=== PATIENT | male | born 1945 | race Caucasian/White ===

== ENCOUNTER 2018-02-01 13:44 | Inpatient (IN) | payer MEDICARE, OTHER ==
[~2018-02-01] VITALS: Ht 175.3 cm; Wt 70.4 kg
[2018-02-01] MEDS ORDERED: SODIUM CHLORIDE 0.9% 1,000 ML IV ONE ×2 (13:57→16:04)
[2018-02-01] MEDS ORDERED: SODIUM CHLORIDE FLUSH 10ML SYR IVF ONE (14:00)
[2018-02-01] MEDS ORDERED: SODIUM CHLORIDE 0.9% 1,000ML IVBOLUS ONE ×2 (14:00→15:00)
[2018-02-01 14:29] LABS: MEAN CORPUSCULAR HEMOGLOBIN 29.2 pg (27.5-34.5); MEAN CORPUSCULAR HGB CONC 32.5 g/dL (33.2-36.2); MEAN CORPUSCULAR VOLUME 89.7 fL (81-97); MEAN PLATELET VOLUME 8.1 fL (7.4-10.4); PLATELET COUNT 270 x10^3/uL (130-400); RED BLOOD COUNT 5.94 x10^6/uL (4.38-5.82); RED CELL DISTRIBUTION WIDTH 14.7 % (9.4-14.8)
[2018-02-01] MEDS ORDERED: PLEASE ENTER HEIGHT AND WEIGHT MC SCH (14:30)
[2018-02-01] MEDS ORDERED: PLEASE ENTER ALLERGIES MC SCH (14:30)
[2018-02-01 14:41] LABS: ALANINE AMINOTRANSFERASE 61 U/L (12-78); ALBUMIN 2.7 g/dL (3.4-5.0); ANION GAP 18 mmol/L (5-15); CALCIUM 8.7 mg/dL (8.5-10.1); CHLORIDE 109 mmol/L (98-107); CREATININE 1.55 mg/dL (0.7-1.3)
[2018-02-01 14:44] LABS: ALKALINE PHOSPHATASE 127 U/L (45-117); BILIRUBIN,TOTAL 0.6 mg/dL (0.2-1.0); CREATINE KINASE, TOTAL 272 U/L (39-308); TOTAL PROTEIN 8.1 g/dL (6.4-8.2)
[2018-02-01] MEDS ORDERED: PHARMACOKINETIC CONSULTATION MC ONE (15:00)
[2018-02-01] MEDS ORDERED: VANCOMYCIN PER PHARMACY MC ONE (15:00)
[2018-02-01] MEDS ORDERED: PIPERACILLIN/TAZO/PMX 4.5GM 100 ML IVPB ONE (15:00)
[2018-02-01] MEDS ORDERED: VANCOMYCIN 1,400 MG in SODIUM CHLORIDE 0.9% 250 ML IV ONE (15:30)
[2018-02-01 15:34] LABS: MD YES
[2018-02-01 15:55] LABS: <RBC MORPHOLOGY> NORMAL; BAND#(MANUAL) 0.51 x10^3/uL; BANDS%(MANUAL) 2 % (0-7); MONOS#(MANUAL) 2.03 x10^3/uL (0.3-2.7); MONOS% (MANUAL) 8 % (2-9); SEG#(MANUAL) 22.86 x10^3/uL (1.8-6.8); SEGS% (MANUAL) 90 % (42-75)
[2018-02-01 15:56] LABS: <PLATELET ESTIMATE> ADEQUATE; <PLT MORPHOLOGY> NORMAL PLT MORPH
[2018-02-01] MEDS ORDERED: SODIUM CHLORIDE FLUSH 10ML SYR IVF PRN (16:30)
[2018-02-01 16:36] LABS: MICROSCOPIC INDICATED
[2018-02-01] MEDS ORDERED: NS + 20MEQ KCL 1,000 ML IV SCH (16:46)
[2018-02-01 16:49] LABS: CULTURE INDICATED? YES
[2018-02-01] MEDS ORDERED: ONDANSETRON 2MG/ML, 2ML IVPush PRN (17:00)
[2018-02-01] MEDS ORDERED: SODIUM BICARBONATE 8.4% 100 MEQ in DEXTROSE 5% 1,000 ML IV SCH (17:00)
[2018-02-01] MEDS ORDERED: PROMETHAZINE 25 MG/ML, 1ML IM PRN (17:00)
[2018-02-01] MEDS ORDERED: ONDANSETRON ODT 4 MG PO PRN (17:00)
[2018-02-01 17:08] LABS: HCT (SEDRATE) 53.1 % (39.2-51.8)
[2018-02-01] MEDS ORDERED: VANCOMYCIN PER PHARMACY MC PRN (17:30)
[2018-02-01] MEDS ORDERED: TAMS0.4C2 PO (17:35)
[2018-02-01] MEDS ORDERED: SERT25TA PO (17:35)
[2018-02-01] MEDS ORDERED: CYAN100014 PO (17:35)
[2018-02-01] MEDS ORDERED: ASPI-515 PO (17:35)
[2018-02-01] MEDS ORDERED: SERT50TA5 PO (17:35)
[2018-02-01] MEDS ORDERED: FINA5TAB4 PO (17:35)
[2018-02-01] MEDS ORDERED: METF500T17 PO (17:35)
[2018-02-01] MEDS ORDERED: LATA2.5D3 EACHEYE (17:35)
[2018-02-01] MEDS ORDERED: ATOR20TA9 PO (17:35)
[2018-02-01] MEDS ORDERED: GABA300C10 PO (17:35)
[2018-02-01] MEDS ORDERED: TRAZ-137 PO (17:35)
[2018-02-01] MEDS ORDERED: PHARMACOKINETIC MONITORING MC PRN (18:00)
[2018-02-01] MEDS: PIPERACILLIN/TAZO/PMX 3.375GM 50 ML IV SCH (18:21)
[2018-02-01] MEDS: HEPARIN 5,000 UNITS/ML, 1ML SQ SCH (18:26)
[2018-02-01 19:51] VITALS: BP 129/80
[2018-02-01] MEDS: SODIUM BICARBONATE 8.4% 100 MEQ in DEXTROSE 5% 1,000 ML IV SCH (21:24)
[2018-02-01] MEDS: INSULIN LISPRO 100 UNITS/ML, PEN SQ-INSULIN SCH (22:07)
[2018-02-01] MEDS: IBUPROFEN 600 MG TABLET PO PRN (22:30)
[2018-02-01 23:43] LABS: MEAN CORPUSCULAR HEMOGLOBIN 29.9 pg (27.5-34.5); MEAN CORPUSCULAR HGB CONC 33.5 g/dL (33.2-36.2); MEAN CORPUSCULAR VOLUME 89.2 fL (81-97); MEAN PLATELET VOLUME 7.9 fL (7.4-10.4); PLATELET COUNT 243 x10^3/uL (130-400); RED BLOOD COUNT 5.13 x10^6/uL (4.38-5.82); RED CELL DISTRIBUTION WIDTH 14.7 % (9.4-14.8)
[2018-02-01 23:45] VITALS: BP 135/84
[2018-02-01 23:45] LABS: ANION GAP 14 mmol/L (5-15); CALCIUM 7.9 mg/dL (8.5-10.1); CHLORIDE 112 mmol/L (98-107); CREATININE 1.26 mg/dL (0.7-1.3); MD YES
[2018-02-02 00:30] LABS: <PLATELET ESTIMATE> ADEQUATE; <PLT MORPHOLOGY> NORMAL PLT MORPH; <RBC MORPHOLOGY> NORMAL; BAND#(MANUAL) 0.93 x10^3/uL; BANDS%(MANUAL) 5 % (0-7); LYMPH#(MANUAL) 0.37 x10^3/uL (1-3.4); LYMPHS% (MANUAL) 2 % (22-44); MONOS#(MANUAL) 0.56 x10^3/uL (0.3-2.7); MONOS% (MANUAL) 3 % (2-9); SEG#(MANUAL) 16.74 x10^3/uL (1.8-6.8); SEGS% (MANUAL) 90 % (42-75)
[2018-02-02] MEDS: PIPERACILLIN/TAZO/PMX 3.375GM 50 ML IV SCH ×3 (01:37→16:38)
[2018-02-02] MEDS: HEPARIN 5,000 UNITS/ML, 1ML SQ SCH ×3 (01:38→16:38)
[2018-02-02 02:22] VITALS: BP 111/68
[2018-02-02 05:35] LABS: MEAN CORPUSCULAR HEMOGLOBIN 29.8 pg (27.5-34.5); MEAN CORPUSCULAR HGB CONC 33.1 g/dL (33.2-36.2); MEAN CORPUSCULAR VOLUME 89.9 fL (81-97); MEAN PLATELET VOLUME 8.1 fL (7.4-10.4); PLATELET COUNT 221 x10^3/uL (130-400); RED BLOOD COUNT 4.74 x10^6/uL (4.38-5.82); RED CELL DISTRIBUTION WIDTH 14.7 % (9.4-14.8)
[2018-02-02 05:43] LABS: ANION GAP 15 mmol/L (5-15); CALCIUM 7.6 mg/dL (8.5-10.1); CHLORIDE 107 mmol/L (98-107); CREATININE 1.21 mg/dL (0.7-1.3)
[2018-02-02 05:46] LABS: CREATINE KINASE, TOTAL 148 U/L (39-308)
[2018-02-02 06:07] LABS: BASOPHILS % (AUTO) 0 % (0-1); EOSINOPHILS % (AUTO) 0 % (1-7); LYMPHOCYTES # (AUTO) 0.32 x10^3/uL (1-3.4); LYMPHOCYTES % (AUTO) 2 % (22-44); MD SCAN; MONOCYTES % (AUTO) 6 % (2-9); NEUTROPHILS # (AUTO) 16.24 x10^3/uL (1.8-6.8); NEUTROPHILS % (AUTO) 93 % (42-75)
[2018-02-02 07:05] VITALS: BP 122/69
[2018-02-02] MEDS: INSULIN LISPRO 100 UNITS/ML, PEN SQ-INSULIN SCH ×4 (08:30→22:03)
[2018-02-02] MEDS: SODIUM BICARBONATE 8.4% 100 MEQ in DEXTROSE 5% 1,000 ML IV SCH (08:30)
[2018-02-02] MEDS ORDERED: GADOBUTROL 7.5 MMOL/7.5 ML PFS ONE (10:36)
[2018-02-02] MEDS: IBUPROFEN 600 MG TABLET PO PRN (11:41)
[2018-02-02 14:30] LABS: CLOSTRIDIUM DIFFICILE TOXIN NEGATIVE (Negative)
[2018-02-02 14:31] LABS: CLOSTRIDIUM DIFFICILE ANTIGEN POSITIVE
[2018-02-02 15:19] VITALS: BP 158/85
[2018-02-02] MEDS: VANCOMYCIN 1,400 MG in SODIUM CHLORIDE 0.9% 250 ML IV SCH (17:47)
[2018-02-02] MEDS ORDERED: POTASSIUM CHLORIDE 40 MEQ in SODIUM CHLORIDE 0.9% 500 ML IV ONE ×2 (19:30→23:30)
[2018-02-02 20:51] LABS: ANION GAP 11 mmol/L (5-15); CALCIUM 7.7 mg/dL (8.5-10.1); CHLORIDE 105 mmol/L (98-107); CREATININE 1.02 mg/dL (0.7-1.3)
[2018-02-02 21:17] VITALS: BP 131/77
[2018-02-02] MEDS ORDERED: POTASSIUM PHOSPHATE 22 MEQ in SODIUM CHLORIDE 0.9% 500 ML IV ONE (23:30)
[2018-02-03] MEDS: HEPARIN 5,000 UNITS/ML, 1ML SQ SCH ×3 (01:29→16:52)
[2018-02-03] MEDS: PIPERACILLIN/TAZO/PMX 3.375GM 50 ML IV SCH ×3 (01:29→18:19)
[2018-02-03 01:46] VITALS: BP 100/65
[2018-02-03] MEDS: SODIUM BICARBONATE 8.4% 100 MEQ in DEXTROSE 5% 1,000 ML IV SCH (02:24)
[2018-02-03 05:29] LABS: CHLORIDE 104 mmol/L (98-107)
[2018-02-03 05:31] LABS: MEAN CORPUSCULAR HEMOGLOBIN 29.9 pg (27.5-34.5); MEAN CORPUSCULAR VOLUME 87.9 fL (81-97); MEAN PLATELET VOLUME 7.9 fL (7.4-10.4); PLATELET COUNT 180 x10^3/uL (130-400); RED CELL DISTRIBUTION WIDTH 14.6 % (9.4-14.8)
[2018-02-03 05:36] LABS: ANION GAP 9 mmol/L (5-15); CALCIUM 7.3 mg/dL (8.5-10.1); CREATININE 0.85 mg/dL (0.7-1.3)
[2018-02-03 06:00] LABS: BASOPHILS # (AUTO) 0.01 x10^3/uL (0-0.1); BASOPHILS % (AUTO) 0 % (0-1); EOSINOPHILS # (AUTO) 0.01 x10^3/uL (0-0.4); EOSINOPHILS % (AUTO) 0 % (1-7); LYMPHOCYTES # (AUTO) 0.37 x10^3/uL (1-3.4); LYMPHOCYTES % (AUTO) 3 % (22-44); MD SCAN; MONOCYTES # (AUTO) 0.17 x10^3/uL (0.2-0.8); MONOCYTES % (AUTO) 1 % (2-9); NEUTROPHILS % (AUTO) 96 % (42-75)
[2018-02-03] MEDS: IBUPROFEN 600 MG TABLET PO PRN ×2 (06:24→19:55)
[2018-02-03 07:25] VITALS: BP 98/63
[2018-02-03] MEDS ORDERED: POTASSIUM CHLORIDE 40 MEQ in SODIUM CHLORIDE 0.9% 500 ML IV ONE (07:30)
[2018-02-03] MEDS: INSULIN LISPRO 100 UNITS/ML, PEN SQ-INSULIN SCH ×4 (09:06→21:00)
[2018-02-03 15:20] VITALS: BP 108/64
[2018-02-03] MEDS: VANCOMYCIN 1,400 MG in SODIUM CHLORIDE 0.9% 250 ML IV SCH (16:51)
[2018-02-03 20:51] VITALS: BP 105/69
[2018-02-04] MEDS: PIPERACILLIN/TAZO/PMX 3.375GM 50 ML IV SCH ×3 (01:15→17:08)
[2018-02-04] MEDS: HEPARIN 5,000 UNITS/ML, 1ML SQ SCH ×3 (01:16→16:41)
[2018-02-04 01:35] VITALS: BP 103/68
[2018-02-04 06:33] LABS: MEAN CORPUSCULAR HEMOGLOBIN 29.2 pg (27.5-34.5); MEAN CORPUSCULAR HGB CONC 33.5 g/dL (33.2-36.2); MEAN CORPUSCULAR VOLUME 87.2 fL (81-97); MEAN PLATELET VOLUME 7.4 fL (7.4-10.4); PLATELET COUNT 186 x10^3/uL (130-400); RED BLOOD COUNT 4.12 x10^6/uL (4.38-5.82); RED CELL DISTRIBUTION WIDTH 14.4 % (9.4-14.8)
[2018-02-04 06:42] LABS: ANION GAP 9 mmol/L (5-15); CALCIUM 7.1 mg/dL (8.5-10.1); CHLORIDE 106 mmol/L (98-107)
[2018-02-04 07:07] LABS: BASOPHILS # (AUTO) 0.02 x10^3/uL (0-0.1); BASOPHILS % (AUTO) 0 % (0-1); EOSINOPHILS # (AUTO) 0.12 x10^3/uL (0-0.4); EOSINOPHILS % (AUTO) 1 % (1-7); LYMPHOCYTES % (AUTO) 5 % (22-44); MD SCAN; MONOCYTES # (AUTO) 0.15 x10^3/uL (0.2-0.8); MONOCYTES % (AUTO) 1 % (2-9); NEUTROPHILS # (AUTO) 12.35 x10^3/uL (1.8-6.8); NEUTROPHILS % (AUTO) 93 % (42-75)
[2018-02-04 08:19] VITALS: BP 127/71
[2018-02-04] MEDS: INSULIN LISPRO 100 UNITS/ML, PEN SQ-INSULIN SCH ×4 (08:20→20:09)
[2018-02-04] MEDS ORDERED: POTASSIUM CHLORIDE 40 MEQ in SODIUM CHLORIDE 0.9% 500 ML IV ONE (10:00)
[2018-02-04] MEDS ORDERED: MAGNESIUM SULFATE PMX 2GM/50ML 50 ML IV ONE (10:00)
[2018-02-04 12:14] VITALS: BP 119/74
[2018-02-04] MEDS ORDERED: SITA25TA PO (12:19)
[2018-02-04] MEDS: VANCOMYCIN 1,400 MG in SODIUM CHLORIDE 0.9% 250 ML IV SCH (16:41)
[2018-02-04] MEDS: LACTOBACILLUS 1GM/ PACKET PO SCH (20:09)
[2018-02-04] MEDS: MAGNESIUM CHLORIDE 64 MG TABLET.DR PO SCH (20:09)
[2018-02-04] MEDS: VANCOMYCIN 50 MG/ML ORAL SUSP PO SCH (20:09)
[2018-02-04 20:22] VITALS: BP 143/87
[2018-02-04] MEDS ORDERED: SODIUM CHLORIDE 0.9%, 500ML IVBOLUS ONE (23:30)
[2018-02-05] MEDS: HEPARIN 5,000 UNITS/ML, 1ML SQ SCH ×3 (00:46→18:19)
[2018-02-05 01:23] VITALS: BP 121/73
[2018-02-05] MEDS: VANCOMYCIN 50 MG/ML ORAL SUSP PO SCH ×4 (04:58→21:16)
[2018-02-05 05:49] LABS: ANION GAP 10 mmol/L (5-15); CALCIUM 7.9 mg/dL (8.5-10.1); CHLORIDE 103 mmol/L (98-107); CREATININE 0.76 mg/dL (0.7-1.3)
[2018-02-05 06:33] LABS: MEAN CORPUSCULAR HEMOGLOBIN 29.6 pg (27.5-34.5); MEAN CORPUSCULAR HGB CONC 34.1 g/dL (33.2-36.2); MEAN PLATELET VOLUME 7.8 fL (7.4-10.4); PLATELET COUNT 223 x10^3/uL (130-400); RED BLOOD COUNT 4.35 x10^6/uL (4.38-5.82); RED CELL DISTRIBUTION WIDTH 14.1 % (9.4-14.8)
[2018-02-05 06:52] LABS: BASOPHILS # (AUTO) 0.01 x10^3/uL (0-0.1); BASOPHILS % (AUTO) 0 % (0-1); EOSINOPHILS % (AUTO) 1 % (1-7); LYMPHOCYTES # (AUTO) 0.83 x10^3/uL (1-3.4); LYMPHOCYTES % (AUTO) 5 % (22-44); MD SCAN; MONOCYTES % (AUTO) 3 % (2-9); NEUTROPHILS # (AUTO) 15.83 x10^3/uL (1.8-6.8); NEUTROPHILS % (AUTO) 91 % (42-75)
[2018-02-05 07:17] VITALS: BP 132/78
[2018-02-05] MEDS: MAGNESIUM CHLORIDE 64 MG TABLET.DR PO SCH ×2 (07:52→21:15)
[2018-02-05] MEDS: LACTOBACILLUS 1GM/ PACKET PO SCH ×3 (07:52→21:15)
[2018-02-05] MEDS: INSULIN LISPRO 100 UNITS/ML, PEN SQ-INSULIN SCH ×4 (07:53→21:17)
[2018-02-05] MEDS ORDERED: POTASSIUM CHLORIDE 40 MEQ in SODIUM CHLORIDE 0.9% 500 ML IV ONE (09:30)
[2018-02-05] MEDS ORDERED: MAGNESIUM SULFATE PMX 2GM/50ML 50 ML IV ONE (10:00)
[2018-02-05] MEDS ORDERED: POTASSIUM PHOSPHATE 44 MEQ in SODIUM CHLORIDE 0.9% 500 ML IV ONE (10:00)
[2018-02-05] MEDS: ASPIRIN 81 MG TABLET EC PO SCH (10:26)
[2018-02-05] MEDS: FINASTERIDE 5 MG TABLET PO SCH (10:26)
[2018-02-05] MEDS: GABAPENTIN 400 MG CAPSULE PO SCH ×2 (10:26→21:16)
[2018-02-05] MEDS: CYANOCOBALAMIN 1,000 MCG TABLET PO SCH (10:27)
[2018-02-05] MEDS: TAMSULOSIN 0.4 MG CAP.ER.24H PO SCH (10:44)
[2018-02-05] MEDS: SERTRALINE 50MG TABLET PO SCH (10:44)
[2018-02-05] MEDS: IBUPROFEN 600 MG TABLET PO PRN (13:23)
[2018-02-05 15:00] VITALS: BP 120/73
[2018-02-05] MEDS: VANCOMYCIN 1,400 MG in SODIUM CHLORIDE 0.9% 250 ML IV SCH (18:17)
[2018-02-05 20:18] VITALS: BP 122/75
[2018-02-05] MEDS: ATORVASTATIN 20 MG TABLET PO SCH (21:15)
[2018-02-05] MEDS: TRAZODONE 50MG TABLET PO SCH (21:15)
[2018-02-05] MEDS: INSULIN GLARGINE 100 UNITS/ML, PEN SQ-INSULIN SCH (21:16)
[2018-02-05] MEDS: LATANOPROST OPHTH 0.005%, 2.5ML EACHEYE SCH (21:21)
[2018-02-06 01:43] VITALS: BP 123/73
[2018-02-06] MEDS: HEPARIN 5,000 UNITS/ML, 1ML SQ SCH ×3 (01:59→16:27)
[2018-02-06] MEDS: VANCOMYCIN 50 MG/ML ORAL SUSP PO SCH ×4 (05:49→21:14)
[2018-02-06] MEDS: INSULIN LISPRO 100 UNITS/ML, PEN SQ-INSULIN SCH ×4 (07:00→21:16)
[2018-02-06 07:23] VITALS: BP 126/78
[2018-02-06] MEDS: LACTOBACILLUS 1GM/ PACKET PO SCH ×3 (09:00→21:14)
[2018-02-06] MEDS: GABAPENTIN 400 MG CAPSULE PO SCH ×2 (09:08→21:14)
[2018-02-06] MEDS: SERTRALINE 50MG TABLET PO SCH (09:08)
[2018-02-06] MEDS: MAGNESIUM CHLORIDE 64 MG TABLET.DR PO SCH ×2 (09:08→21:14)
[2018-02-06] MEDS: CYANOCOBALAMIN 1,000 MCG TABLET PO SCH (09:08)
[2018-02-06] MEDS: TAMSULOSIN 0.4 MG CAP.ER.24H PO SCH (09:08)
[2018-02-06] MEDS: FINASTERIDE 5 MG TABLET PO SCH (09:08)
[2018-02-06] MEDS: ASPIRIN 81 MG TABLET EC PO SCH (09:08)
[2018-02-06 14:01] VITALS: BP 122/74
[2018-02-06] MEDS: VANCOMYCIN 1,400 MG in SODIUM CHLORIDE 0.9% 250 ML IV SCH (17:34)
[2018-02-06 18:55] VITALS: BP 104/68
[2018-02-06] MEDS: IBUPROFEN 600 MG TABLET PO PRN (21:14)
[2018-02-06] MEDS: TRAZODONE 50MG TABLET PO SCH (21:14)
[2018-02-06] MEDS: ATORVASTATIN 20 MG TABLET PO SCH (21:14)
[2018-02-06] MEDS: LATANOPROST OPHTH 0.005%, 2.5ML EACHEYE SCH (21:15)
[2018-02-06] MEDS: INSULIN GLARGINE 100 UNITS/ML, PEN SQ-INSULIN SCH (21:17)
[2018-02-07] MEDS: HEPARIN 5,000 UNITS/ML, 1ML SQ SCH ×3 (01:27→16:46)
[2018-02-07] MEDS: ACETAMINOPHEN 325 MG TABLET PO PRN ×2 (02:00→15:38)
[2018-02-07 03:00] VITALS: BP 110/72
[2018-02-07] MEDS: VANCOMYCIN 50 MG/ML ORAL SUSP PO SCH ×4 (05:35→22:17)
[2018-02-07] MEDS: TAMSULOSIN 0.4 MG CAP.ER.24H PO SCH (08:50)
[2018-02-07] MEDS: FINASTERIDE 5 MG TABLET PO SCH (08:50)
[2018-02-07] MEDS: MAGNESIUM CHLORIDE 64 MG TABLET.DR PO SCH ×2 (08:50→22:08)
[2018-02-07] MEDS: GABAPENTIN 400 MG CAPSULE PO SCH ×2 (08:50→22:08)
[2018-02-07] MEDS: SERTRALINE 50MG TABLET PO SCH (08:50)
[2018-02-07] MEDS: LACTOBACILLUS 1GM/ PACKET PO SCH ×3 (08:51→22:09)
[2018-02-07] MEDS: ASPIRIN 81 MG TABLET EC PO SCH (08:51)
[2018-02-07] MEDS: INSULIN LISPRO 100 UNITS/ML, PEN SQ-INSULIN SCH ×4 (08:51→21:00)
[2018-02-07] MEDS: CYANOCOBALAMIN 1,000 MCG TABLET PO SCH (08:51)
[2018-02-07] MEDS: IBUPROFEN 600 MG TABLET PO PRN (09:56)
[2018-02-07] MEDS: VANCOMYCIN 1,400 MG in SODIUM CHLORIDE 0.9% 250 ML IV SCH (17:29)
[2018-02-07 20:36] VITALS: BP 107/57
[2018-02-07] MEDS: INSULIN GLARGINE 100 UNITS/ML, PEN SQ-INSULIN SCH (22:08)
[2018-02-07] MEDS: ATORVASTATIN 20 MG TABLET PO SCH (22:08)
[2018-02-07] MEDS: LATANOPROST OPHTH 0.005%, 2.5ML EACHEYE SCH (22:09)
[2018-02-07] MEDS: TRAZODONE 50MG TABLET PO SCH (22:09)
[2018-02-08] MEDS: HEPARIN 5,000 UNITS/ML, 1ML SQ SCH ×4 (01:00→16:37)
[2018-02-08] MEDS: VANCOMYCIN 50 MG/ML ORAL SUSP PO SCH ×4 (06:00→20:34)
[2018-02-08] MEDS: INSULIN LISPRO 100 UNITS/ML, PEN SQ-INSULIN SCH ×4 (07:00→20:34)
[2018-02-08 08:04] VITALS: BP 111/72
[2018-02-08] MEDS: ASPIRIN 81 MG TABLET EC PO SCH (08:38)
[2018-02-08] MEDS: TAMSULOSIN 0.4 MG CAP.ER.24H PO SCH (08:38)
[2018-02-08] MEDS: GABAPENTIN 400 MG CAPSULE PO SCH ×2 (08:38→20:34)
[2018-02-08] MEDS: LACTOBACILLUS 1GM/ PACKET PO SCH ×3 (08:38→20:35)
[2018-02-08] MEDS: FINASTERIDE 5 MG TABLET PO SCH (08:39)
[2018-02-08] MEDS: CYANOCOBALAMIN 1,000 MCG TABLET PO SCH (08:39)
[2018-02-08] MEDS: MAGNESIUM CHLORIDE 64 MG TABLET.DR PO SCH ×2 (08:39→20:34)
[2018-02-08] MEDS: SERTRALINE 50MG TABLET PO SCH (08:39)
[2018-02-08] MEDS ORDERED: LIDOCAINE/PF 1%, 30ML ONE (09:52)
[2018-02-08] MEDS ORDERED: BUPIVACAINE/PF 0.5% ONE (09:52)
[2018-02-08 12:01] VITALS: BP 117/71
[2018-02-08] MEDS: SODIUM CHLORIDE 0.9% 1,000 ML IV SCH (16:33)
[2018-02-08] MEDS: VANCOMYCIN 1,500 MG in SODIUM CHLORIDE 0.9% 250 ML IV SCH (18:33)
[2018-02-08 18:51] VITALS: BP 115/75
[2018-02-08] MEDS: LATANOPROST OPHTH 0.005%, 2.5ML EACHEYE SCH (20:34)
[2018-02-08] MEDS: TRAZODONE 50MG TABLET PO SCH (20:34)
[2018-02-08] MEDS: ATORVASTATIN 20 MG TABLET PO SCH (20:34)
[2018-02-08] MEDS: INSULIN GLARGINE 100 UNITS/ML, PEN SQ-INSULIN SCH (20:35)
[2018-02-09 01:05] VITALS: BP 131/77
[2018-02-09] MEDS: HEPARIN 5,000 UNITS/ML, 1ML SQ SCH ×3 (01:45→17:00)
[2018-02-09] MEDS: SODIUM CHLORIDE 0.9% 1,000 ML IV SCH ×3 (01:45→22:01)
[2018-02-09] MEDS: VANCOMYCIN 50 MG/ML ORAL SUSP PO SCH ×4 (05:23→21:11)
[2018-02-09] MEDS: INSULIN LISPRO 100 UNITS/ML, PEN SQ-INSULIN SCH ×4 (08:10→22:02)
[2018-02-09] MEDS: CYANOCOBALAMIN 1,000 MCG TABLET PO SCH (09:34)
[2018-02-09] MEDS: GABAPENTIN 400 MG CAPSULE PO SCH ×2 (09:34→21:11)
[2018-02-09] MEDS: FINASTERIDE 5 MG TABLET PO SCH (09:34)
[2018-02-09] MEDS: TAMSULOSIN 0.4 MG CAP.ER.24H PO SCH (09:35)
[2018-02-09] MEDS: ASPIRIN 81 MG TABLET EC PO SCH (09:35)
[2018-02-09] MEDS: SERTRALINE 50MG TABLET PO SCH (09:35)
[2018-02-09] MEDS: MAGNESIUM CHLORIDE 64 MG TABLET.DR PO SCH ×2 (09:35→21:10)
[2018-02-09] MEDS: LACTOBACILLUS 1GM/ PACKET PO SCH ×3 (09:35→21:10)
[2018-02-09 09:59] VITALS: BP 105/65
[2018-02-09 15:59] VITALS: BP 121/79
[2018-02-09 20:59] VITALS: BP 104/71
[2018-02-09] MEDS: TRAZODONE 50MG TABLET PO SCH (21:11)
[2018-02-09] MEDS: LATANOPROST OPHTH 0.005%, 2.5ML EACHEYE SCH (21:11)
[2018-02-09] MEDS: ATORVASTATIN 20 MG TABLET PO SCH (21:11)
[2018-02-09] MEDS: INSULIN GLARGINE 100 UNITS/ML, PEN SQ-INSULIN SCH (22:03)
[2018-02-10] MEDS: HEPARIN 5,000 UNITS/ML, 1ML SQ SCH ×3 (01:28→16:37)
[2018-02-10 01:53] VITALS: BP 110/68
[2018-02-10 05:37] LABS: BASOPHILS % (AUTO) 0 % (0-1); EOSINOPHILS # (AUTO) 0.15 x10^3/uL (0-0.4); EOSINOPHILS % (AUTO) 1 % (1-7); LYMPHOCYTES # (AUTO) 1.12 x10^3/uL (1-3.4); LYMPHOCYTES % (AUTO) 9 % (22-44); MD NO; MEAN CORPUSCULAR HEMOGLOBIN 29.5 pg (27.5-34.5); MEAN CORPUSCULAR HGB CONC 33.5 g/dL (33.2-36.2); MEAN CORPUSCULAR VOLUME 88.2 fL (81-97); MEAN PLATELET VOLUME 7.6 fL (7.4-10.4); MONOCYTES # (AUTO) 0.81 x10^3/uL (0.2-0.8); MONOCYTES % (AUTO) 6 % (2-9); NEUTROPHILS # (AUTO) 11.09 x10^3/uL (1.8-6.8); NEUTROPHILS % (AUTO) 84 % (42-75); PLATELET COUNT 297 x10^3/uL (130-400); RED BLOOD COUNT 4.02 x10^6/uL (4.38-5.82); RED CELL DISTRIBUTION WIDTH 13.8 % (9.4-14.8)
[2018-02-10 05:43] LABS: ANION GAP 10 mmol/L (5-15); CALCIUM 7.8 mg/dL (8.5-10.1); CHLORIDE 102 mmol/L (98-107)
[2018-02-10 05:46] LABS: CREATININE 0.79 mg/dL (0.7-1.3); VANCOMYCIN,TROUGH 11.9 mcg/mL (5.0-10.0)
[2018-02-10] MEDS: VANCOMYCIN 50 MG/ML ORAL SUSP PO SCH ×4 (05:50→21:29)
[2018-02-10] MEDS: VANCOMYCIN 1,500 MG in SODIUM CHLORIDE 0.9% 250 ML IV SCH (05:51)
[2018-02-10] MEDS: INSULIN LISPRO 100 UNITS/ML, PEN SQ-INSULIN SCH ×4 (08:06→21:30)
[2018-02-10 09:12] VITALS: BP 109/67
[2018-02-10] MEDS: SODIUM CHLORIDE 0.9% 1,000 ML IV SCH ×2 (09:33→20:01)
[2018-02-10] MEDS: LACTOBACILLUS 1GM/ PACKET PO SCH ×3 (09:34→21:27)
[2018-02-10] MEDS: FINASTERIDE 5 MG TABLET PO SCH (09:34)
[2018-02-10] MEDS: MAGNESIUM CHLORIDE 64 MG TABLET.DR PO SCH ×2 (09:34→21:27)
[2018-02-10] MEDS: SERTRALINE 50MG TABLET PO SCH (09:35)
[2018-02-10] MEDS: CYANOCOBALAMIN 1,000 MCG TABLET PO SCH (09:35)
[2018-02-10] MEDS: GABAPENTIN 400 MG CAPSULE PO SCH ×2 (09:35→21:28)
[2018-02-10] MEDS: ASPIRIN 81 MG TABLET EC PO SCH (09:35)
[2018-02-10] MEDS: TAMSULOSIN 0.4 MG CAP.ER.24H PO SCH (09:35)
[2018-02-10 12:39] VITALS: BP 114/70
[2018-02-10 19:46] VITALS: BP 111/73
[2018-02-10] MEDS: ATORVASTATIN 20 MG TABLET PO SCH (21:27)
[2018-02-10] MEDS: TRAZODONE 50MG TABLET PO SCH (21:28)
[2018-02-10] MEDS: LATANOPROST OPHTH 0.005%, 2.5ML EACHEYE SCH (21:28)
[2018-02-10] MEDS: INSULIN GLARGINE 100 UNITS/ML, PEN SQ-INSULIN SCH (21:29)
[2018-02-11] MEDS: HEPARIN 5,000 UNITS/ML, 1ML SQ SCH ×3 (00:26→17:45)
[2018-02-11 03:39] VITALS: BP 91/61
[2018-02-11] MEDS: SODIUM CHLORIDE 0.9% 1,000 ML IV SCH ×2 (04:05→17:31)
[2018-02-11 05:25] LABS: INTERNATIONAL NORMALIZED RATIO 1.06 (0.93-1.1); PROTHROMBIN TIME 10.9 Seconds (9.6-11.5)
[2018-02-11] MEDS: VANCOMYCIN 50 MG/ML ORAL SUSP PO SCH ×4 (06:13→21:26)
[2018-02-11 07:21] VITALS: BP 114/73
[2018-02-11] MEDS: LACTOBACILLUS 1GM/ PACKET PO SCH ×3 (07:54→21:25)
[2018-02-11] MEDS: GABAPENTIN 400 MG CAPSULE PO SCH ×2 (07:54→21:26)
[2018-02-11] MEDS: MAGNESIUM CHLORIDE 64 MG TABLET.DR PO SCH ×2 (07:54→21:26)
[2018-02-11] MEDS: FINASTERIDE 5 MG TABLET PO SCH (07:55)
[2018-02-11] MEDS: ASPIRIN 81 MG TABLET EC PO SCH (07:55)
[2018-02-11] MEDS: TAMSULOSIN 0.4 MG CAP.ER.24H PO SCH (07:55)
[2018-02-11] MEDS: CYANOCOBALAMIN 1,000 MCG TABLET PO SCH (07:55)
[2018-02-11] MEDS: SERTRALINE 50MG TABLET PO SCH (07:55)
[2018-02-11] MEDS: INSULIN LISPRO 100 UNITS/ML, PEN SQ-INSULIN SCH ×4 (07:56→21:27)
[2018-02-11] MEDS: IBUPROFEN 600 MG TABLET PO PRN (10:45)
[2018-02-11] MEDS ORDERED: OXYcodone/APAP 5/325MG TABLET ONE (11:20)
[2018-02-11] MEDS: OXYcodone/APAP 5/325MG TABLET PO PRN ×2 (11:30→17:45)
[2018-02-11] MEDS: VANCOMYCIN 1,500 MG in SODIUM CHLORIDE 0.9% 250 ML IV SCH (18:14)
[2018-02-11 18:21] VITALS: BP 109/65
[2018-02-11 19:32] VITALS: BP 124/70
[2018-02-11] MEDS: TRAZODONE 50MG TABLET PO SCH (21:26)
[2018-02-11] MEDS: ATORVASTATIN 20 MG TABLET PO SCH (21:26)
[2018-02-11] MEDS: LATANOPROST OPHTH 0.005%, 2.5ML EACHEYE SCH (21:26)
[2018-02-11] MEDS: INSULIN GLARGINE 100 UNITS/ML, PEN SQ-INSULIN SCH (21:27)
[2018-02-12] MEDS: HEPARIN 5,000 UNITS/ML, 1ML SQ SCH ×3 (01:39→16:12)
[2018-02-12 02:18] VITALS: BP 93/60
[2018-02-12] MEDS: SODIUM CHLORIDE 0.9% 1,000 ML IV SCH ×3 (04:10→21:55)
[2018-02-12] MEDS: VANCOMYCIN 50 MG/ML ORAL SUSP PO SCH ×4 (06:06→21:53)
[2018-02-12] MEDS: INSULIN LISPRO 100 UNITS/ML, PEN SQ-INSULIN SCH ×4 (07:00→21:53)
[2018-02-12 07:36] VITALS: BP 91/55
[2018-02-12] MEDS: FINASTERIDE 5 MG TABLET PO SCH (07:49)
[2018-02-12] MEDS: MAGNESIUM CHLORIDE 64 MG TABLET.DR PO SCH ×2 (07:50→21:53)
[2018-02-12] MEDS: TAMSULOSIN 0.4 MG CAP.ER.24H PO SCH (07:50)
[2018-02-12] MEDS: LACTOBACILLUS 1GM/ PACKET PO SCH ×3 (07:50→21:54)
[2018-02-12] MEDS: GABAPENTIN 400 MG CAPSULE PO SCH ×2 (07:50→21:54)
[2018-02-12] MEDS: CYANOCOBALAMIN 1,000 MCG TABLET PO SCH (07:50)
[2018-02-12] MEDS: SERTRALINE 50MG TABLET PO SCH (07:50)
[2018-02-12] MEDS: ASPIRIN 81 MG TABLET EC PO SCH (07:50)
[2018-02-12] MEDS: IBUPROFEN 600 MG TABLET PO PRN (11:11)
[2018-02-12 13:40] VITALS: BP 101/58
[2018-02-12] MEDS: OXYcodone/APAP 5/325MG TABLET PO PRN (16:12)
[2018-02-12 18:58] VITALS: BP 108/71
[2018-02-12] MEDS: INSULIN GLARGINE 100 UNITS/ML, PEN SQ-INSULIN SCH (21:53)
[2018-02-12] MEDS: ATORVASTATIN 20 MG TABLET PO SCH (21:53)
[2018-02-12] MEDS: TRAZODONE 50MG TABLET PO SCH (21:53)
[2018-02-12] MEDS: LATANOPROST OPHTH 0.005%, 2.5ML EACHEYE SCH (21:54)
[2018-02-13] MEDS: HEPARIN 5,000 UNITS/ML, 1ML SQ SCH ×3 (02:11→16:49)
[2018-02-13 02:12] VITALS: BP 101/57
[2018-02-13] MEDS: OXYcodone/APAP 5/325MG TABLET PO PRN (03:01)
[2018-02-13] MEDS: VANCOMYCIN 50 MG/ML ORAL SUSP PO SCH ×4 (06:40→22:09)
[2018-02-13] MEDS: VANCOMYCIN 1,500 MG in SODIUM CHLORIDE 0.9% 250 ML IV SCH (06:40)
[2018-02-13] MEDS: INSULIN LISPRO 100 UNITS/ML, PEN SQ-INSULIN SCH ×4 (07:00→22:10)
[2018-02-13 08:37] VITALS: BP 98/55
[2018-02-13] MEDS: SODIUM CHLORIDE 0.9% 1,000 ML IV SCH ×2 (09:42→20:38)
[2018-02-13] MEDS: ASPIRIN 81 MG TABLET EC PO SCH (09:43)
[2018-02-13] MEDS: GABAPENTIN 400 MG CAPSULE PO SCH ×2 (09:52→22:09)
[2018-02-13] MEDS: FINASTERIDE 5 MG TABLET PO SCH (09:52)
[2018-02-13] MEDS: TAMSULOSIN 0.4 MG CAP.ER.24H PO SCH (09:52)
[2018-02-13] MEDS: LACTOBACILLUS 1GM/ PACKET PO SCH ×3 (09:52→22:09)
[2018-02-13] MEDS: MAGNESIUM CHLORIDE 64 MG TABLET.DR PO SCH ×2 (09:53→22:09)
[2018-02-13] MEDS: CYANOCOBALAMIN 1,000 MCG TABLET PO SCH (09:58)
[2018-02-13] MEDS: SERTRALINE 50MG TABLET PO SCH (09:58)
[2018-02-13 13:39] VITALS: BP 126/74
[2018-02-13 20:30] VITALS: BP 99/59
[2018-02-13 20:50] VITALS: BP 106/70
[2018-02-13] MEDS ORDERED: ACETAMINOPHEN 650 MG SUPP PR PRN (21:00)
[2018-02-13] MEDS ORDERED: SODIUM CHLORIDE 0.9% 1,000ML IVBOLUS ONE (21:00)
[2018-02-13] MEDS: ATORVASTATIN 20 MG TABLET PO SCH (22:08)
[2018-02-13] MEDS: ACETAMINOPHEN 325 MG TABLET PO PRN (22:08)
[2018-02-13] MEDS: LATANOPROST OPHTH 0.005%, 2.5ML EACHEYE SCH (22:09)
[2018-02-13 22:10] VITALS: BP 105/68
[2018-02-13] MEDS: INSULIN GLARGINE 100 UNITS/ML, PEN SQ-INSULIN SCH (22:17)
[2018-02-13] MEDS: TRAZODONE 50MG TABLET PO SCH (22:17)
[2018-02-14 00:05] VITALS: BP 99/58
[2018-02-14 02:02] VITALS: BP 100/65
[2018-02-14] MEDS: HEPARIN 5,000 UNITS/ML, 1ML SQ SCH ×3 (02:43→15:59)
[2018-02-14] MEDS: VANCOMYCIN 50 MG/ML ORAL SUSP PO SCH ×4 (06:40→21:45)
[2018-02-14] MEDS: SODIUM CHLORIDE 0.9% 1,000 ML IV SCH ×2 (06:41→15:58)
[2018-02-14 07:27] VITALS: BP 120/73
[2018-02-14] MEDS: INSULIN LISPRO 100 UNITS/ML, PEN SQ-INSULIN SCH ×4 (08:45→22:26)
[2018-02-14] MEDS: CYANOCOBALAMIN 1,000 MCG TABLET PO SCH (08:46)
[2018-02-14] MEDS: SERTRALINE 50MG TABLET PO SCH (08:46)
[2018-02-14] MEDS: LACTOBACILLUS 1GM/ PACKET PO SCH ×3 (08:46→21:45)
[2018-02-14] MEDS: FINASTERIDE 5 MG TABLET PO SCH (08:46)
[2018-02-14] MEDS: MAGNESIUM CHLORIDE 64 MG TABLET.DR PO SCH ×2 (08:46→21:45)
[2018-02-14] MEDS: ASPIRIN 81 MG TABLET EC PO SCH (08:46)
[2018-02-14] MEDS: TAMSULOSIN 0.4 MG CAP.ER.24H PO SCH (08:46)
[2018-02-14] MEDS: GABAPENTIN 400 MG CAPSULE PO SCH ×2 (08:46→21:45)
[2018-02-14] MEDS: OXYcodone/APAP 5/325MG TABLET PO PRN ×2 (09:09→15:59)
[2018-02-14 14:38] VITALS: BP 95/59
[2018-02-14] MEDS: VANCOMYCIN 1,500 MG in SODIUM CHLORIDE 0.9% 250 ML IV SCH (17:30)
[2018-02-14 19:19] VITALS: BP 102/61
[2018-02-14] MEDS: LATANOPROST OPHTH 0.005%, 2.5ML EACHEYE SCH (21:45)
[2018-02-14] MEDS: TRAZODONE 50MG TABLET PO SCH (21:45)
[2018-02-14] MEDS: ATORVASTATIN 20 MG TABLET PO SCH (21:45)
[2018-02-14] MEDS: INSULIN GLARGINE 100 UNITS/ML, PEN SQ-INSULIN SCH (22:27)
[2018-02-15] MEDS: HEPARIN 5,000 UNITS/ML, 1ML SQ SCH ×4 (01:54→23:55)
[2018-02-15 02:09] VITALS: BP 138/75
[2018-02-15] MEDS: SODIUM CHLORIDE 0.9% 1,000 ML IV SCH ×2 (03:36→17:25)
[2018-02-15 05:42] LABS: ANION GAP 7 mmol/L (5-15); CALCIUM 8.1 mg/dL (8.5-10.1); CHLORIDE 104 mmol/L (98-107); CREATININE 0.66 mg/dL (0.7-1.3)
[2018-02-15 05:45] LABS: MEAN CORPUSCULAR HEMOGLOBIN 29.4 pg (27.5-34.5); MEAN CORPUSCULAR HGB CONC 33.4 g/dL (33.2-36.2); MEAN CORPUSCULAR VOLUME 88.2 fL (81-97); RED BLOOD COUNT 3.88 x10^6/uL (4.38-5.82); RED CELL DISTRIBUTION WIDTH 14.3 % (9.4-14.8)
[2018-02-15 06:27] LABS: BASOPHILS # (AUTO) 0.04 x10^3/uL (0-0.1); BASOPHILS % (AUTO) 0 % (0-1); EOSINOPHILS # (AUTO) 0.14 x10^3/uL (0-0.4); EOSINOPHILS % (AUTO) 2 % (1-7); LYMPHOCYTES # (AUTO) 1.08 x10^3/uL (1-3.4); LYMPHOCYTES % (AUTO) 13 % (22-44); MD SCAN; MEAN PLATELET VOLUME 7.4 fL (7.4-10.4); MONOCYTES # (AUTO) 0.58 x10^3/uL (0.2-0.8); MONOCYTES % (AUTO) 7 % (2-9); NEUTROPHILS # (AUTO) 6.69 x10^3/uL (1.8-6.8); NEUTROPHILS % (AUTO) 79 % (42-75); PLATELET COUNT 420 x10^3/uL (130-400)
[2018-02-15] MEDS: VANCOMYCIN 50 MG/ML ORAL SUSP PO SCH ×4 (06:37→23:54)
[2018-02-15] MEDS: INSULIN LISPRO 100 UNITS/ML, PEN SQ-INSULIN SCH ×4 (06:43→23:56)
[2018-02-15 08:04] VITALS: BP 125/79
[2018-02-15] MEDS: TAMSULOSIN 0.4 MG CAP.ER.24H PO SCH (08:58)
[2018-02-15] MEDS: ASPIRIN 81 MG TABLET EC PO SCH (08:58)
[2018-02-15] MEDS: CYANOCOBALAMIN 1,000 MCG TABLET PO SCH (08:59)
[2018-02-15] MEDS: SERTRALINE 50MG TABLET PO SCH (08:59)
[2018-02-15] MEDS: FINASTERIDE 5 MG TABLET PO SCH (08:59)
[2018-02-15] MEDS: GABAPENTIN 400 MG CAPSULE PO SCH ×2 (08:59→23:54)
[2018-02-15] MEDS: MAGNESIUM CHLORIDE 64 MG TABLET.DR PO SCH ×2 (08:59→23:54)
[2018-02-15] MEDS: LACTOBACILLUS 1GM/ PACKET PO SCH ×3 (08:59→23:54)
[2018-02-15] MEDS ORDERED: BUPIVACAINE/PF 0.5% ONE (09:48)
[2018-02-15] MEDS ORDERED: FENTANYL PF 100 MCG/2ML ONE (11:57)
[2018-02-15] MEDS ORDERED: PHENYLEPHRINE 10 MG/ML ONE (11:58)
[2018-02-15] MEDS ORDERED: PROPOFOL 10 MG/ML, 20ML ONE (11:58)
[2018-02-15] MEDS ORDERED: MAGNESIUM SULFATE PMX 2GM/50ML 50 ML IV ONE (12:00)
[2018-02-15] MEDS ORDERED: LABETALOL 5MG/ML, 20ML IV PRN (12:30)
[2018-02-15] MEDS ORDERED: EPHEDRINE 50 MG/ML, 1ML IVPush PRN (12:30)
[2018-02-15] MEDS ORDERED: FENTANYL PF 100 MCG/2ML IV PRN (12:30)
[2018-02-15] MEDS ORDERED: ONDANSETRON 2MG/ML, 2ML IV PRN (12:30)
[2018-02-15] MEDS ORDERED: ALBUTEROL/IPRATROPIUM 2.5MG/0.5MG, 3 ML NPPB PRN (12:30)
[2018-02-15] MEDS ORDERED: MIDAZOLAM 1 MG/ML, 2ML IV PRN (12:30)
[2018-02-15 19:45] VITALS: BP 128/71
[2018-02-15] MEDS: ATORVASTATIN 20 MG TABLET PO SCH (23:54)
[2018-02-15] MEDS: TRAZODONE 50MG TABLET PO SCH (23:54)
[2018-02-15] MEDS: INSULIN GLARGINE 100 UNITS/ML, PEN SQ-INSULIN SCH (23:57)
[2018-02-15] MEDS: LATANOPROST OPHTH 0.005%, 2.5ML EACHEYE SCH (23:57)
[2018-02-15] MEDS: OXYcodone/APAP 5/325MG TABLET PO PRN (23:59)
[2018-02-16] MEDS: SODIUM CHLORIDE 0.9% 1,000 ML IV SCH ×2 (04:02→16:34)
[2018-02-16 05:06] VITALS: BP 100/62
[2018-02-16] MEDS: VANCOMYCIN 1,500 MG in SODIUM CHLORIDE 0.9% 250 ML IV SCH (05:42)
[2018-02-16 06:45] VITALS: BP 98/61
[2018-02-16] MEDS: INSULIN LISPRO 100 UNITS/ML, PEN SQ-INSULIN SCH ×4 (07:00→23:54)
[2018-02-16] MEDS: VANCOMYCIN 50 MG/ML ORAL SUSP PO SCH ×4 (07:35→23:52)
[2018-02-16] MEDS: TAMSULOSIN 0.4 MG CAP.ER.24H PO SCH (08:42)
[2018-02-16] MEDS: GABAPENTIN 400 MG CAPSULE PO SCH ×2 (08:42→23:52)
[2018-02-16] MEDS: LACTOBACILLUS 1GM/ PACKET PO SCH ×3 (08:42→23:51)
[2018-02-16] MEDS: CYANOCOBALAMIN 1,000 MCG TABLET PO SCH (08:42)
[2018-02-16] MEDS: FINASTERIDE 5 MG TABLET PO SCH (08:42)
[2018-02-16] MEDS: ASPIRIN 81 MG TABLET EC PO SCH (08:42)
[2018-02-16] MEDS: MAGNESIUM CHLORIDE 64 MG TABLET.DR PO SCH ×3 (08:42→23:52)
[2018-02-16] MEDS: SERTRALINE 50MG TABLET PO SCH (08:42)
[2018-02-16] MEDS: HEPARIN 5,000 UNITS/ML, 1ML SQ SCH ×2 (08:43→16:35)
[2018-02-16 13:14] VITALS: BP 96/59
[2018-02-16 21:05] VITALS: BP 127/74
[2018-02-16] MEDS: TRAZODONE 50MG TABLET PO SCH (23:51)
[2018-02-16] MEDS: ATORVASTATIN 20 MG TABLET PO SCH (23:52)
[2018-02-16] MEDS: LATANOPROST OPHTH 0.005%, 2.5ML EACHEYE SCH (23:53)
[2018-02-16] MEDS: INSULIN GLARGINE 100 UNITS/ML, PEN SQ-INSULIN SCH (23:54)
[2018-02-17] MEDS: HEPARIN 5,000 UNITS/ML, 1ML SQ SCH ×4 (00:22→23:52)
[2018-02-17 00:55] VITALS: BP 121/77
[2018-02-17] MEDS: VANCOMYCIN 50 MG/ML ORAL SUSP PO SCH ×4 (06:49→20:57)
[2018-02-17] MEDS: INSULIN LISPRO 100 UNITS/ML, PEN SQ-INSULIN SCH ×5 (07:00→20:57)
[2018-02-17 07:05] VITALS: BP 116/72
[2018-02-17] MEDS: ASPIRIN 81 MG TABLET EC PO SCH (08:43)
[2018-02-17] MEDS: MAGNESIUM CHLORIDE 64 MG TABLET.DR PO SCH ×4 (08:43→20:56)
[2018-02-17] MEDS: LACTOBACILLUS 1GM/ PACKET PO SCH ×3 (08:43→20:56)
[2018-02-17] MEDS: GABAPENTIN 400 MG CAPSULE PO SCH ×2 (08:43→20:56)
[2018-02-17] MEDS: CYANOCOBALAMIN 1,000 MCG TABLET PO SCH (08:44)
[2018-02-17] MEDS: FINASTERIDE 5 MG TABLET PO SCH (08:44)
[2018-02-17] MEDS: SERTRALINE 50MG TABLET PO SCH (08:44)
[2018-02-17] MEDS: TAMSULOSIN 0.4 MG CAP.ER.24H PO SCH (08:44)
[2018-02-17] MEDS: SODIUM CHLORIDE 0.9% 1,000 ML IV SCH ×3 (09:00→23:53)
[2018-02-17 12:36] VITALS: BP 111/72
[2018-02-17] MEDS: DAPTOMYCIN 420 MG in SODIUM CHLORIDE 0.9% 100 ML IVPB SCH (13:42)
[2018-02-17 19:06] VITALS: BP 119/73
[2018-02-17] MEDS: ATORVASTATIN 20 MG TABLET PO SCH (20:57)
[2018-02-17] MEDS: LATANOPROST OPHTH 0.005%, 2.5ML EACHEYE SCH (20:57)
[2018-02-17] MEDS: INSULIN GLARGINE 100 UNITS/ML, PEN SQ-INSULIN SCH (20:58)
[2018-02-17] MEDS: TRAZODONE 50MG TABLET PO SCH (21:03)
[2018-02-17] MEDS: OXYcodone/APAP 5/325MG TABLET PO PRN (21:22)
[2018-02-18 02:21] VITALS: BP 99/62
[2018-02-18] MEDS: VANCOMYCIN 50 MG/ML ORAL SUSP PO SCH ×4 (06:00→21:57)
[2018-02-18] MEDS: INSULIN LISPRO 100 UNITS/ML, PEN SQ-INSULIN SCH ×4 (06:43→21:58)
[2018-02-18 07:03] VITALS: BP 105/67
[2018-02-18] MEDS: HEPARIN 5,000 UNITS/ML, 1ML SQ SCH ×2 (07:56→16:27)
[2018-02-18] MEDS: MAGNESIUM CHLORIDE 64 MG TABLET.DR PO SCH ×4 (07:56→21:56)
[2018-02-18] MEDS: LACTOBACILLUS 1GM/ PACKET PO SCH ×3 (07:56→21:56)
[2018-02-18] MEDS: GABAPENTIN 400 MG CAPSULE PO SCH ×2 (07:57→21:56)
[2018-02-18] MEDS: CYANOCOBALAMIN 1,000 MCG TABLET PO SCH (07:58)
[2018-02-18] MEDS: FINASTERIDE 5 MG TABLET PO SCH (07:58)
[2018-02-18] MEDS: SERTRALINE 50MG TABLET PO SCH (07:58)
[2018-02-18] MEDS: TAMSULOSIN 0.4 MG CAP.ER.24H PO SCH (07:58)
[2018-02-18] MEDS: ASPIRIN 81 MG TABLET EC PO SCH (07:58)
[2018-02-18] MEDS: OXYcodone/APAP 5/325MG TABLET PO PRN ×2 (09:55→21:56)
[2018-02-18] MEDS: SODIUM CHLORIDE 0.9% 1,000 ML IV SCH ×2 (09:55→21:57)
[2018-02-18 13:02] VITALS: BP 108/72
[2018-02-18] MEDS: DAPTOMYCIN 420 MG in SODIUM CHLORIDE 0.9% 100 ML IVPB SCH (13:13)
[2018-02-18 15:25] LABS: HCT (SEDRATE) 33.3 % (39.2-51.8)
[2018-02-18 20:00] VITALS: BP 109/68
[2018-02-18] MEDS: LATANOPROST OPHTH 0.005%, 2.5ML EACHEYE SCH (21:56)
[2018-02-18] MEDS: TRAZODONE 50MG TABLET PO SCH (21:57)
[2018-02-18] MEDS: INSULIN GLARGINE 100 UNITS/ML, PEN SQ-INSULIN SCH (21:58)
[2018-02-19] MEDS: HEPARIN 5,000 UNITS/ML, 1ML SQ SCH ×3 (00:43→16:18)
[2018-02-19 01:26] VITALS: BP 119/71
[2018-02-19] MEDS: VANCOMYCIN 50 MG/ML ORAL SUSP PO SCH ×4 (05:24→21:34)
[2018-02-19] MEDS: OXYcodone/APAP 5/325MG TABLET PO PRN ×2 (05:24→16:17)
[2018-02-19 06:54] VITALS: BP 103/60
[2018-02-19] MEDS: INSULIN LISPRO 100 UNITS/ML, PEN SQ-INSULIN SCH ×4 (07:00→21:35)
[2018-02-19] MEDS: SODIUM CHLORIDE 0.9% 1,000 ML IV SCH ×2 (07:48→21:33)
[2018-02-19] MEDS: MAGNESIUM CHLORIDE 64 MG TABLET.DR PO SCH ×4 (09:00→21:34)
[2018-02-19] MEDS: FINASTERIDE 5 MG TABLET PO SCH (09:08)
[2018-02-19] MEDS: SERTRALINE 50MG TABLET PO SCH (09:08)
[2018-02-19] MEDS: CYANOCOBALAMIN 1,000 MCG TABLET PO SCH (09:08)
[2018-02-19] MEDS: ASPIRIN 81 MG TABLET EC PO SCH (09:08)
[2018-02-19] MEDS: TAMSULOSIN 0.4 MG CAP.ER.24H PO SCH (09:09)
[2018-02-19] MEDS: GABAPENTIN 400 MG CAPSULE PO SCH ×2 (09:09→21:34)
[2018-02-19] MEDS: LACTOBACILLUS 1GM/ PACKET PO SCH ×3 (09:09→21:33)
[2018-02-19] MEDS: MULTIVITAMINS/MINERALS TABLET PO SCH (09:09)
[2018-02-19 13:12] VITALS: BP 99/63
[2018-02-19] MEDS: DAPTOMYCIN 420 MG in SODIUM CHLORIDE 0.9% 100 ML IVPB SCH (15:12)
[2018-02-19 20:26] VITALS: BP 102/65
[2018-02-19] MEDS: TRAZODONE 50MG TABLET PO SCH (21:33)
[2018-02-19] MEDS: LATANOPROST OPHTH 0.005%, 2.5ML EACHEYE SCH (21:33)
[2018-02-19] MEDS: INSULIN GLARGINE 100 UNITS/ML, PEN SQ-INSULIN SCH (21:35)
[2018-02-20] MEDS: HEPARIN 5,000 UNITS/ML, 1ML SQ SCH ×2 (02:03→09:38)
[2018-02-20 02:04] VITALS: BP 100/63
[2018-02-20] MEDS: VANCOMYCIN 50 MG/ML ORAL SUSP PO SCH ×2 (06:29→11:30)
[2018-02-20] MEDS: SODIUM CHLORIDE 0.9% 1,000 ML IV SCH (06:29)
[2018-02-20 06:51] VITALS: BP 106/63
[2018-02-20] MEDS: INSULIN LISPRO 100 UNITS/ML, PEN SQ-INSULIN SCH ×2 (07:00→11:00)
[2018-02-20] MEDS: MAGNESIUM CHLORIDE 64 MG TABLET.DR PO SCH ×2 (09:00→09:37)
[2018-02-20] MEDS: TAMSULOSIN 0.4 MG CAP.ER.24H PO SCH (09:36)
[2018-02-20] MEDS: ASPIRIN 81 MG TABLET EC PO SCH (09:36)
[2018-02-20] MEDS: LACTOBACILLUS 1GM/ PACKET PO SCH (09:36)
[2018-02-20] MEDS: GABAPENTIN 400 MG CAPSULE PO SCH (09:37)
[2018-02-20] MEDS: FINASTERIDE 5 MG TABLET PO SCH (09:37)
[2018-02-20] MEDS: MULTIVITAMINS/MINERALS TABLET PO SCH (09:37)
[2018-02-20] MEDS: CYANOCOBALAMIN 1,000 MCG TABLET PO SCH (09:37)
[2018-02-20] MEDS: SERTRALINE 50MG TABLET PO SCH (09:37)
[2018-02-20 12:06] VITALS: BP 138/75
== END 2018-02-20 13:00 | DRG 853 ==
LOC: ED 14:44 → EDIP 16:04 → 4WST 17:30 → 4NOR 02-08 11:54
PROVIDERS: ADMIT Emergency Medicine; ATTEND Emergency Medicine
PROC: 0LNP0ZZ Release Left Lower Leg Tendon, Open Approach (ICD-10-PCS; 2018-02-15)
PROC: 0Y6Q0Z1 Detachment at Left 1st Toe, High, Open Approach (ICD-10-PCS; principal; 2018-02-15 12:00)
DX: A41.02 Sepsis due to Methicillin resistant Staphylococcus aureus (principal); N17.0 Acute kidney failure with tubular necrosis; A04.72 Enterocolitis due to Clostridium difficile, not specified as recurrent; E87.2 Acidosis; M62.82 Rhabdomyolysis; M86.172 Other acute osteomyelitis, left ankle and foot; E11.42 Type 2 diabetes mellitus with diabetic polyneuropathy; E11.65 Type 2 diabetes mellitus with hyperglycemia; E11.69 Type 2 diabetes mellitus with other specified complication; E78.00 Pure hypercholesterolemia, unspecified; E78.5 Hyperlipidemia, unspecified; E87.6 Hypokalemia; F43.10 Post-traumatic stress disorder, unspecified; F43.20 Adjustment disorder, unspecified; I10 Essential (primary) hypertension; M20.5X2 Other deformities of toe(s) (acquired), left foot; M24.573 Contracture, unspecified ankle; N40.0 Benign prostatic hyperplasia without lower urinary tract symptoms; R32 Unspecified urinary incontinence; R62.7 Adult failure to thrive; T68.XXXA Hypothermia, initial encounter; X31.XXXA Exposure to excessive natural cold, initial encounter; Z79.4 Long term (current) use of insulin; Z83.3 Family history of diabetes mellitus; Z89.511 Acquired absence of right leg below knee; Z89.512 Acquired absence of left leg below knee; Z79.82 Long term (current) use of aspirin; Z79.899 Other long term (current) drug therapy
CPT/HCPCS: 36415; 36600; 70450; 71045; 80048; 80053; 80202; 81001; 82306; 82550; 82607; 82803; 82962; 83605; 83735; 84100; 84145; 84443; 85025; 85610; 85651; 86140; 87040; 87070; 87075; 87077; 87086; 87147; 87186; 87205; 87324; 87493; 88305; 93306; 96374; 96375; A9585; G0378; J0878; J1644; J2405; J2543; J2704; J3010; J3370; J3480; J3490; J7070; 92523-GN; G0515-GN; J1815; J2370; J3475; J7030; J7040; J7050

== ENCOUNTER 2018-05-20 14:42 | Inpatient (IN) | payer MEDICARE, OTHER ==
[~2018-05-20] VITALS: Ht 177.8 cm; Wt 65.2 kg
[~2018-05-20 14:42] MED LIST: ASPI-515 PO; ATOR20TA37 PO; CYAN100014 PO; FINA5TAB4 PO; GABA300C10 PO; LATA2.5D3 EACHEYE; METF500T17 PO; SERT25TA PO; SERT50TA28 PO; SITA25TA PO; TAMS0.4C2 PO; TRAZ-137 PO
--- NOTE | 2018-05-20 15:36 | NUR ---
PT FROM [facility] WHERE APPARENTLY HE HAD A WITNESSED SEIZURE. PT STATED HE WAS JUST TRYING TO GET OUT OF THE WHEELCHAIR. PT WITH DEMENTIA. PT PLACED IN ROOM AND PLACED ON BP AND CONT. PULSE OXIMETER.
[2018-05-20 15:51] LABS: BASOPHILS # (AUTO) 0.13 x10^3/uL (0-0.1); BASOPHILS % (AUTO) 1 % (0-1); EOSINOPHILS # (AUTO) 0.06 x10^3/uL (0-0.4); EOSINOPHILS % (AUTO) 0 % (1-7); LYMPHOCYTES # (AUTO) 0.78 x10^3/uL (1-3.4); LYMPHOCYTES % (AUTO) 5 % (22-44); MD NO; MEAN CORPUSCULAR HEMOGLOBIN 26.9 pg (27.5-34.5); MEAN CORPUSCULAR HGB CONC 32.2 g/dL (33.2-36.2); MEAN CORPUSCULAR VOLUME 83.5 fL (81-97); MEAN PLATELET VOLUME 8.4 fL (7.4-10.4); MONOCYTES % (AUTO) 3 % (2-9); NEUTROPHILS % (AUTO) 90 % (42-75); PLATELET COUNT 296 x10^3/uL (130-400); RED BLOOD COUNT 4.66 x10^6/uL (4.38-5.82); RED CELL DISTRIBUTION WIDTH 17.7 % (9.4-14.8)
[2018-05-20 15:59] LABS: INTERNATIONAL NORMALIZED RATIO 1.01 (0.93-1.1); PROTHROMBIN TIME 10.7 Seconds (9.6-11.5)
[2018-05-20 16:00] LABS: ALBUMIN 3.5 g/dL (3.4-5.0); ANION GAP 9 mmol/L (5-15); CALCIUM 9.3 mg/dL (8.5-10.1); CHLORIDE 104 mmol/L (98-107); CREATININE 1.86 mg/dL (0.7-1.3)
--- NOTE | 2018-05-20 17:37 | NUR ---
UNSUCCESSFUL WITH MINI CATH. UNABLE TO GET PAST PROSTATE.
[2018-05-20] MEDS ORDERED: OMEP-110 PO (17:51)
[2018-05-20] MEDS ORDERED: LIDOCAINE 2%,20 ML JEL.PF.APP MM ONE (18:00)
[2018-05-20] MEDS ORDERED: BISACODYL 10 MG SUPP PR PRN ×2 (18:00→18:45)
[2018-05-20] MEDS ORDERED: POLYETHYLENE GLYCOL 17 GM PACKET PO PRN ×2 (18:00→18:45)
[2018-05-20] MEDS ORDERED: HEPARIN 5,000 UNITS/ML, 1ML SQ SCH (18:00)
[2018-05-20] MEDS ORDERED: ONDANSETRON ODT 4 MG PO PRN ×2 (18:00→18:45)
[2018-05-20] MEDS: INSULIN LISPRO 100 UNITS/ML, PEN SQ-INSULIN SCH ×2 (18:00→21:00)
[2018-05-20] MEDS ORDERED: ACETAMINOPHEN 325 MG TABLET PO PRN (18:00)
--- NOTE | 2018-05-20 18:48 | NUR ---
18 TURKMEN COUDE PLACED IN PT . PT TOLERATED WELL. URINE SENT TO LAB.
--- NOTE | 2018-05-20 18:57 | NUR ---
PT WITH STAGE 2 PRESSURE ULCER ON COCCYX-PRESENT ON ADMISSION. PT COVERED IN STOOL.
--- NOTE | 2018-05-20 18:58 | NUR ---
[facility] NOT WORKING TO TAKE A PICTUE OF COCCYX.
[2018-05-20 18:59] LABS: HEMOGLOBIN A1C 5.4 % (4.2-6.3)
--- NOTE | 2018-05-20 19:00 | NUR ---
REPORT GIVEN TO CHANI CHILDERS.
--- NOTE | 2018-05-20 19:17 | NUR ---
REPORT RECEIVED FROM AGUSTIN CHILDERS AT BED SIDE PT IS RESTING IN [facility] UPDATED UA SENT TO LAB
[2018-05-20 19:18] LABS: CULTURE INDICATED? YES; MICROSCOPIC INDICATED
--- NOTE | 2018-05-20 19:21 | NUR ---
report given to alisia schmitz
[2018-05-20] MEDS ORDERED: HEPARIN 5,000 UNITS/ML, 1ML ONE (20:29)
[2018-05-20] MEDS: HEPARIN 5,000 UNITS/ML, 1ML SQ SCH (20:35)
[2018-05-20] MEDS: SODIUM CHLORIDE 0.9% 1,000 ML IV SCH (20:35)
--- NOTE | 2018-05-20 20:54 | NUR ---
PT IS RESTING VSS START IV FLUIDS REQUEST ADMIT MED FROM PHARMACY
[2018-05-20] MEDS: TRAZODONE 50MG TABLET PO SCH (21:00)
[2018-05-20] MEDS ORDERED: LATANOPROST OPHTH 0.005%, 2.5ML EACHEYE SCH (21:00)
[2018-05-20] MEDS ORDERED: ATORVASTATIN 20 MG TABLET PO SCH (21:00)
[2018-05-20] MEDS ORDERED: OMEPRAZOLE 20 MG CAPSULE.DR PO SCH (21:00)
[2018-05-20] MEDS ORDERED: TEMPLATE NON-FORMULARY MED. (Gabapentin** 800 MG) PO SCH (21:00)
[2018-05-20] MEDS ORDERED: TRAZODONE HCL 50 MG PO SCH (21:00)
[2018-05-20] MEDS ORDERED: OMEPRAZOLE 20 MG CAPSULE.DR ONE (21:15)
[2018-05-20] MEDS ORDERED: GABAPENTIN 400 MG CAPSULE ONE (21:16)
[2018-05-20] MEDS: ATORVASTATIN 20 MG TABLET PO SCH (21:19)
[2018-05-20] MEDS: LATANOPROST OPHTH 0.005%, 2.5ML EACHEYE SCH (21:19)
[2018-05-20] MEDS: GABAPENTIN 400 MG CAPSULE PO SCH (21:20)
[2018-05-20] MEDS: OMEPRAZOLE 20 MG CAPSULE.DR PO SCH (21:20)
--- NOTE | 2018-05-20 21:47 | NUR ---
OFFERED FOODS BUT PT REFUSED FOR NOW GIVEN WATER PER PT REQUEST
--- NOTE | 2018-05-20 22:08 | NUR ---
HOSPITAL BED WAS REQUESTED WAFFLE BED WILL BE PLACED
[2018-05-20] MEDS: CEFTRIAXONE PMX 1GM/50ML 50 ML IV SCH (22:30)
--- NOTE | 2018-05-20 22:31 | NUR ---
notified to regarding urine result noah dozier ordered blood cultures and will give iv abx after blood drawn
[2018-05-20] MEDS ORDERED: CEFTRIAXONE PMX 1GM/50ML 50 ML ONE (23:10)
--- NOTE | 2018-05-20 23:14 | NUR ---
GIVEN REPORT TO FLOOR RN IV ABX WAS HUNG PT IS READY TO BE TRANSFER
[2018-05-20 23:40] VITALS: BP 115/73
[2018-05-20 23:49] VITALS: BP 115/73
[2018-05-21 02:37] VITALS: BP 109/69
[2018-05-21] MEDS: HEPARIN 5,000 UNITS/ML, 1ML SQ SCH ×3 (04:47→20:11)
[2018-05-21 06:55] LABS: BASOPHILS # (AUTO) 0.05 x10^3/uL (0-0.1); BASOPHILS % (AUTO) 1 % (0-1); EOSINOPHILS # (AUTO) 0.38 x10^3/uL (0-0.4); EOSINOPHILS % (AUTO) 4 % (1-7); LYMPHOCYTES # (AUTO) 1.39 x10^3/uL (1-3.4); LYMPHOCYTES % (AUTO) 15 % (22-44); MD NO; MEAN CORPUSCULAR HEMOGLOBIN 27.6 pg (27.5-34.5); MEAN CORPUSCULAR VOLUME 83.8 fL (81-97); MEAN PLATELET VOLUME 8.4 fL (7.4-10.4); MONOCYTES # (AUTO) 0.59 x10^3/uL (0.2-0.8); MONOCYTES % (AUTO) 6 % (2-9); NEUTROPHILS # (AUTO) 7.09 x10^3/uL (1.8-6.8); NEUTROPHILS % (AUTO) 75 % (42-75); PLATELET COUNT 247 x10^3/uL (130-400); RED BLOOD COUNT 3.93 x10^6/uL (4.38-5.82); RED CELL DISTRIBUTION WIDTH 17.8 % (9.4-14.8)
[2018-05-21] MEDS: INSULIN LISPRO 100 UNITS/ML, PEN SQ-INSULIN SCH ×4 (07:00→20:11)
[2018-05-21 07:08] LABS: ALBUMIN 3.1 g/dL (3.4-5.0); ANION GAP 8 mmol/L (5-15); CALCIUM 8.8 mg/dL (8.5-10.1); CHLORIDE 105 mmol/L (98-107)
[2018-05-21 07:13] LABS: ALANINE AMINOTRANSFERASE 11 U/L (12-78); ALKALINE PHOSPHATASE 87 U/L (45-117); BILIRUBIN,TOTAL 0.6 mg/dL (0.2-1.0); CREATININE 1.42 mg/dL (0.7-1.3); TOTAL PROTEIN 6.8 g/dL (6.4-8.2)
[2018-05-21] MEDS: SODIUM CHLORIDE 0.9% 1,000 ML IV SCH ×2 (08:15→17:44)
[2018-05-21 08:40] VITALS: BP 98/60
[2018-05-21] MEDS ORDERED: DEXTROSE 4 GM TAB.CHEW PO PRN (09:00)
[2018-05-21] MEDS ORDERED: CYANOCOBALAMIN 1000 MCG PO SCH (09:00)
[2018-05-21] MEDS: SODIUM CHLORIDE FLUSH 10ML SYR IVF SCH ×2 (09:00→22:09)
[2018-05-21] MEDS ORDERED: SENNA/DOCUSATE TABLET PO SCH (09:00)
[2018-05-21] MEDS ORDERED: GLUCAGON 1 MG IM PRN (09:00)
[2018-05-21] MEDS ORDERED: TAMSULOSIN 0.4 MG CAP.ER.24H PO SCH (09:00)
[2018-05-21] MEDS ORDERED: DEXTROSE 50%, 50ML SYRINGE IVPush PRN (09:00)
[2018-05-21] MEDS ORDERED: [UNRECOGNIZED DRUG - OTHER] PO SCH (09:00)
[2018-05-21] MEDS ORDERED: FINASTERIDE 5 MG TABLET PO SCH (09:00)
[2018-05-21] MEDS ORDERED: ASPIRIN 81 MG TABLET EC PO SCH (09:00)
[2018-05-21] MEDS ORDERED: SERTRALINE 50MG TABLET PO SCH (09:00)
[2018-05-21] MEDS: FINASTERIDE 5 MG TABLET PO SCH (11:08)
[2018-05-21] MEDS: GABAPENTIN 400 MG CAPSULE PO SCH ×2 (11:08→20:11)
[2018-05-21] MEDS: ASPIRIN 81 MG TABLET EC PO SCH (11:08)
[2018-05-21] MEDS: OMEPRAZOLE 20 MG CAPSULE.DR PO SCH ×2 (11:09→20:12)
[2018-05-21] MEDS: SERTRALINE 50MG TABLET PO SCH (11:09)
[2018-05-21] MEDS: SENNA/DOCUSATE TABLET PO SCH (11:09)
[2018-05-21] MEDS: TAMSULOSIN 0.4 MG CAP.ER.24H PO SCH (11:09)
[2018-05-21] MEDS: CYANOCOBALAMIN 1,000 MCG TABLET PO SCH (11:09)
[2018-05-21 12:48] VITALS: BP 114/75
[2018-05-21] MEDS ORDERED: GADOBUTROL 7.5 MMOL/7.5 ML PFS ONE (14:00)
[2018-05-21 18:51] VITALS: BP 99/62
[2018-05-21] MEDS: ATORVASTATIN 20 MG TABLET PO SCH (20:12)
[2018-05-21] MEDS: TRAZODONE 50MG TABLET PO SCH (20:12)
[2018-05-21] MEDS: LATANOPROST OPHTH 0.005%, 2.5ML EACHEYE SCH (20:19)
[2018-05-21] MEDS: CEFTRIAXONE PMX 1GM/50ML 50 ML IV SCH (22:29)
[2018-05-22 00:44] VITALS: BP 121/76
[2018-05-22] MEDS: HEPARIN 5,000 UNITS/ML, 1ML SQ SCH ×3 (04:13→21:01)
[2018-05-22] MEDS: SODIUM CHLORIDE 0.9% 1,000 ML IV SCH ×2 (04:13→14:04)
[2018-05-22 05:52] LABS: BASOPHILS # (AUTO) 0.05 x10^3/uL (0-0.1); BASOPHILS % (AUTO) 1 % (0-1); EOSINOPHILS # (AUTO) 0.29 x10^3/uL (0-0.4); EOSINOPHILS % (AUTO) 4 % (1-7); LYMPHOCYTES # (AUTO) 1.18 x10^3/uL (1-3.4); LYMPHOCYTES % (AUTO) 18 % (22-44); MD NO; MEAN CORPUSCULAR HEMOGLOBIN 28.3 pg (27.5-34.5); MEAN CORPUSCULAR HGB CONC 33.7 g/dL (33.2-36.2); MEAN CORPUSCULAR VOLUME 83.8 fL (81-97); MEAN PLATELET VOLUME 8.1 fL (7.4-10.4); MONOCYTES # (AUTO) 0.46 x10^3/uL (0.2-0.8); MONOCYTES % (AUTO) 7 % (2-9); NEUTROPHILS # (AUTO) 4.73 x10^3/uL (1.8-6.8); NEUTROPHILS % (AUTO) 71 % (42-75); PLATELET COUNT 226 x10^3/uL (130-400); RED BLOOD COUNT 3.62 x10^6/uL (4.38-5.82); RED CELL DISTRIBUTION WIDTH 17.8 % (9.4-14.8)
[2018-05-22 06:05] LABS: ALBUMIN 2.8 g/dL (3.4-5.0); ANION GAP 6 mmol/L (5-15); CALCIUM 8.3 mg/dL (8.5-10.1); CHLORIDE 111 mmol/L (98-107)
[2018-05-22 06:06] LABS: CREATININE 1.25 mg/dL (0.7-1.3)
[2018-05-22] MEDS: INSULIN LISPRO 100 UNITS/ML, PEN SQ-INSULIN SCH ×4 (07:00→21:01)
[2018-05-22 08:24] VITALS: BP 117/67
[2018-05-22] MEDS: OMEPRAZOLE 20 MG CAPSULE.DR PO SCH ×2 (08:58→21:01)
[2018-05-22] MEDS: FINASTERIDE 5 MG TABLET PO SCH (08:58)
[2018-05-22] MEDS: ASPIRIN 81 MG TABLET EC PO SCH (08:58)
[2018-05-22] MEDS: GABAPENTIN 400 MG CAPSULE PO SCH ×2 (08:58→21:01)
[2018-05-22] MEDS: TAMSULOSIN 0.4 MG CAP.ER.24H PO SCH (08:58)
[2018-05-22] MEDS: SENNA/DOCUSATE TABLET PO SCH (08:58)
[2018-05-22] MEDS: CYANOCOBALAMIN 1,000 MCG TABLET PO SCH (08:58)
[2018-05-22] MEDS: SERTRALINE 50MG TABLET PO SCH (08:58)
[2018-05-22] MEDS: SODIUM CHLORIDE FLUSH 10ML SYR IVF SCH ×2 (08:59→21:00)
[2018-05-22 13:42] VITALS: BP 95/53
[2018-05-22] MEDS: PIPERACILLIN/TAZO/PMX 3.375GM 50 ML IV SCH ×2 (16:56→23:01)
[2018-05-22 19:19] VITALS: BP 106/55
[2018-05-22] MEDS: TRAZODONE 50MG TABLET PO SCH (21:01)
[2018-05-22] MEDS: ATORVASTATIN 20 MG TABLET PO SCH (21:01)
[2018-05-22] MEDS: LATANOPROST OPHTH 0.005%, 2.5ML EACHEYE SCH (21:01)
[2018-05-23] MEDS: SODIUM CHLORIDE 0.9% 1,000 ML IV SCH ×3 (00:13→22:15)
[2018-05-23 01:29] VITALS: BP 100/65
[2018-05-23] MEDS: PIPERACILLIN/TAZO/PMX 3.375GM 50 ML IV SCH ×4 (05:12→23:02)
[2018-05-23] MEDS: HEPARIN 5,000 UNITS/ML, 1ML SQ SCH ×3 (05:12→22:15)
[2018-05-23] MEDS: INSULIN LISPRO 100 UNITS/ML, PEN SQ-INSULIN SCH ×4 (07:00→20:19)
[2018-05-23 07:16] VITALS: BP 102/69
[2018-05-23 08:35] LABS: BASOPHILS # (AUTO) 0.05 x10^3/uL (0-0.1); BASOPHILS % (AUTO) 1 % (0-1); EOSINOPHILS # (AUTO) 0.36 x10^3/uL (0-0.4); EOSINOPHILS % (AUTO) 5 % (1-7); LYMPHOCYTES # (AUTO) 1.08 x10^3/uL (1-3.4); LYMPHOCYTES % (AUTO) 16 % (22-44); MD NO; MEAN CORPUSCULAR HEMOGLOBIN 27.1 pg (27.5-34.5); MEAN CORPUSCULAR HGB CONC 32.5 g/dL (33.2-36.2); MEAN CORPUSCULAR VOLUME 83.6 fL (81-97); MEAN PLATELET VOLUME 8.1 fL (7.4-10.4); MONOCYTES # (AUTO) 0.41 x10^3/uL (0.2-0.8); MONOCYTES % (AUTO) 6 % (2-9); NEUTROPHILS # (AUTO) 5.05 x10^3/uL (1.8-6.8); NEUTROPHILS % (AUTO) 73 % (42-75); PLATELET COUNT 231 x10^3/uL (130-400); RED BLOOD COUNT 3.52 x10^6/uL (4.38-5.82)
[2018-05-23] MEDS: TAMSULOSIN 0.4 MG CAP.ER.24H PO SCH (08:43)
[2018-05-23] MEDS: OMEPRAZOLE 20 MG CAPSULE.DR PO SCH ×2 (08:43→20:19)
[2018-05-23] MEDS: CYANOCOBALAMIN 1,000 MCG TABLET PO SCH (08:43)
[2018-05-23] MEDS: SENNA/DOCUSATE TABLET PO SCH (08:43)
[2018-05-23] MEDS: ASPIRIN 81 MG TABLET EC PO SCH (08:44)
[2018-05-23] MEDS: FINASTERIDE 5 MG TABLET PO SCH (08:44)
[2018-05-23] MEDS: SODIUM CHLORIDE FLUSH 10ML SYR IVF SCH ×2 (08:44→20:20)
[2018-05-23] MEDS: GABAPENTIN 400 MG CAPSULE PO SCH ×2 (08:44→20:19)
[2018-05-23] MEDS: SERTRALINE 50MG TABLET PO SCH (08:44)
[2018-05-23 08:46] LABS: ALBUMIN 2.7 g/dL (3.4-5.0); ANION GAP 6 mmol/L (5-15); CALCIUM 7.8 mg/dL (8.5-10.1); CHLORIDE 112 mmol/L (98-107); CREATININE 1.27 mg/dL (0.7-1.3)
[2018-05-23] MEDS ORDERED: MAGNESIUM SULFATE PMX 2GM/50ML 50 ML IV ONE (11:00)
[2018-05-23 14:02] VITALS: BP 106/73
[2018-05-23 18:49] VITALS: BP 106/63
[2018-05-23] MEDS: ATORVASTATIN 20 MG TABLET PO SCH (20:19)
[2018-05-23] MEDS: LATANOPROST OPHTH 0.005%, 2.5ML EACHEYE SCH (20:19)
[2018-05-23] MEDS: TRAZODONE 50MG TABLET PO SCH (20:19)
[2018-05-24 01:12] VITALS: BP 123/75
[2018-05-24] MEDS: PIPERACILLIN/TAZO/PMX 3.375GM 50 ML IV SCH (05:10)
[2018-05-24] MEDS: HEPARIN 5,000 UNITS/ML, 1ML SQ SCH ×3 (05:41→21:45)
[2018-05-24 06:10] LABS: BASOPHILS # (AUTO) 0.04 x10^3/uL (0-0.1); BASOPHILS % (AUTO) 1 % (0-1); EOSINOPHILS # (AUTO) 0.45 x10^3/uL (0-0.4); EOSINOPHILS % (AUTO) 7 % (1-7); LYMPHOCYTES # (AUTO) 1.16 x10^3/uL (1-3.4); LYMPHOCYTES % (AUTO) 17 % (22-44); MD NO; MEAN CORPUSCULAR HGB CONC 33.1 g/dL (33.2-36.2); MEAN CORPUSCULAR VOLUME 84.5 fL (81-97); MEAN PLATELET VOLUME 7.9 fL (7.4-10.4); MONOCYTES # (AUTO) 0.45 x10^3/uL (0.2-0.8); MONOCYTES % (AUTO) 7 % (2-9); NEUTROPHILS # (AUTO) 4.77 x10^3/uL (1.8-6.8); NEUTROPHILS % (AUTO) 70 % (42-75); PLATELET COUNT 222 x10^3/uL (130-400); RED BLOOD COUNT 3.73 x10^6/uL (4.38-5.82); RED CELL DISTRIBUTION WIDTH 18.1 % (9.4-14.8)
[2018-05-24 06:21] LABS: ALBUMIN 2.8 g/dL (3.4-5.0); ANION GAP 5 mmol/L (5-15); CALCIUM 8.2 mg/dL (8.5-10.1); CHLORIDE 113 mmol/L (98-107); CREATININE 1.28 mg/dL (0.7-1.3)
[2018-05-24] MEDS: INSULIN LISPRO 100 UNITS/ML, PEN SQ-INSULIN SCH ×4 (07:00→21:00)
[2018-05-24 07:17] VITALS: BP 115/67
[2018-05-24] MEDS ORDERED: CEFTAZIDIME 2,000 MG in SODIUM CHLORIDE 0.9% 50 ML IV SCH (07:30)
[2018-05-24] MEDS: MICAFUNGIN 100 MG in SODIUM CHLORIDE 0.9% 100 ML IV SCH (08:38)
[2018-05-24] MEDS: OMEPRAZOLE 20 MG CAPSULE.DR PO SCH ×2 (08:48→21:19)
[2018-05-24] MEDS: SERTRALINE 50MG TABLET PO SCH (08:48)
[2018-05-24] MEDS: SENNA/DOCUSATE TABLET PO SCH (08:48)
[2018-05-24] MEDS: FINASTERIDE 5 MG TABLET PO SCH (08:48)
[2018-05-24] MEDS: ASPIRIN 81 MG TABLET EC PO SCH (08:49)
[2018-05-24] MEDS: SODIUM CHLORIDE 0.9% 1,000 ML IV SCH ×2 (08:49→21:19)
[2018-05-24] MEDS: CYANOCOBALAMIN 1,000 MCG TABLET PO SCH (08:49)
[2018-05-24] MEDS: GABAPENTIN 400 MG CAPSULE PO SCH ×2 (08:49→21:19)
[2018-05-24] MEDS: TAMSULOSIN 0.4 MG CAP.ER.24H PO SCH (08:49)
[2018-05-24] MEDS: SODIUM CHLORIDE FLUSH 10ML SYR IVF SCH ×2 (08:50→21:19)
[2018-05-24] MEDS: CEFTAZIDIME 2,000 MG in SODIUM CHLORIDE 0.9% 50 ML IV SCH ×2 (10:01→17:46)
[2018-05-24 13:34] VITALS: BP 101/64
[2018-05-24 19:34] VITALS: BP 104/63
[2018-05-24] MEDS: TRAZODONE 50MG TABLET PO SCH (21:18)
[2018-05-24] MEDS: ATORVASTATIN 20 MG TABLET PO SCH (21:19)
[2018-05-24] MEDS: LATANOPROST OPHTH 0.005%, 2.5ML EACHEYE SCH (21:19)
[2018-05-25 00:37] VITALS: BP 106/63
[2018-05-25] MEDS: CEFTAZIDIME 2,000 MG in SODIUM CHLORIDE 0.9% 50 ML IV SCH ×3 (01:57→17:48)
[2018-05-25] MEDS: HEPARIN 5,000 UNITS/ML, 1ML SQ SCH ×3 (05:06→22:47)
[2018-05-25] MEDS: INSULIN LISPRO 100 UNITS/ML, PEN SQ-INSULIN SCH ×4 (07:00→20:37)
[2018-05-25 07:10] VITALS: BP 110/65
[2018-05-25 07:46] LABS: BASOPHILS # (AUTO) 0.07 x10^3/uL (0-0.1); BASOPHILS % (AUTO) 1 % (0-1); EOSINOPHILS # (AUTO) 0.46 x10^3/uL (0-0.4); EOSINOPHILS % (AUTO) 7 % (1-7); LYMPHOCYTES # (AUTO) 1.01 x10^3/uL (1-3.4); LYMPHOCYTES % (AUTO) 15 % (22-44); MD NO; MEAN CORPUSCULAR HEMOGLOBIN 27.1 pg (27.5-34.5); MEAN CORPUSCULAR HGB CONC 31.9 g/dL (33.2-36.2); MEAN CORPUSCULAR VOLUME 85.1 fL (81-97); MEAN PLATELET VOLUME 7.7 fL (7.4-10.4); MONOCYTES # (AUTO) 0.42 x10^3/uL (0.2-0.8); MONOCYTES % (AUTO) 6 % (2-9); NEUTROPHILS % (AUTO) 71 % (42-75); PLATELET COUNT 210 x10^3/uL (130-400); RED BLOOD COUNT 3.53 x10^6/uL (4.38-5.82)
[2018-05-25 07:58] LABS: ALANINE AMINOTRANSFERASE 8 U/L (12-78); ALBUMIN 2.5 g/dL (3.4-5.0); ANION GAP 6 mmol/L (5-15); CALCIUM 7.6 mg/dL (8.5-10.1); CHLORIDE 111 mmol/L (98-107)
[2018-05-25 08:01] LABS: ALKALINE PHOSPHATASE 82 U/L (45-117); BILIRUBIN,TOTAL 0.2 mg/dL (0.2-1.0); CREATININE 1.15 mg/dL (0.7-1.3); TOTAL PROTEIN 5.9 g/dL (6.4-8.2)
[2018-05-25] MEDS: MICAFUNGIN 100 MG in SODIUM CHLORIDE 0.9% 100 ML IV SCH (08:24)
[2018-05-25] MEDS: SODIUM CHLORIDE 0.9% 1,000 ML IV SCH ×2 (08:24→17:48)
[2018-05-25] MEDS: SODIUM CHLORIDE FLUSH 10ML SYR IVF SCH ×2 (08:24→20:37)
[2018-05-25] MEDS: SENNA/DOCUSATE TABLET PO SCH (08:25)
[2018-05-25] MEDS: SERTRALINE 50MG TABLET PO SCH (08:25)
[2018-05-25] MEDS: TAMSULOSIN 0.4 MG CAP.ER.24H PO SCH (08:25)
[2018-05-25] MEDS: GABAPENTIN 400 MG CAPSULE PO SCH ×2 (08:25→20:36)
[2018-05-25] MEDS: FINASTERIDE 5 MG TABLET PO SCH (08:25)
[2018-05-25] MEDS: OMEPRAZOLE 20 MG CAPSULE.DR PO SCH ×2 (08:25→20:36)
[2018-05-25] MEDS: ASPIRIN 81 MG TABLET EC PO SCH (08:25)
[2018-05-25] MEDS: CYANOCOBALAMIN 1,000 MCG TABLET PO SCH (08:25)
[2018-05-25 13:22] VITALS: BP 112/68
[2018-05-25] MEDS: ATORVASTATIN 20 MG TABLET PO SCH (20:36)
[2018-05-25] MEDS: TRAZODONE 50MG TABLET PO SCH (20:36)
[2018-05-25] MEDS: LATANOPROST OPHTH 0.005%, 2.5ML EACHEYE SCH (20:36)
[2018-05-25 21:00] VITALS: BP 107/66
[2018-05-26] MEDS: CEFTAZIDIME 2,000 MG in SODIUM CHLORIDE 0.9% 50 ML IV SCH ×3 (01:51→17:36)
[2018-05-26 03:20] VITALS: BP 109/67
[2018-05-26] MEDS: HEPARIN 5,000 UNITS/ML, 1ML SQ SCH (06:16)
[2018-05-26] MEDS: SODIUM CHLORIDE 0.9% 1,000 ML IV SCH (06:16)
[2018-05-26] MEDS: INSULIN LISPRO 100 UNITS/ML, PEN SQ-INSULIN SCH (07:00)
[2018-05-26] MEDS: TAMSULOSIN 0.4 MG CAP.ER.24H PO SCH (08:10)
[2018-05-26] MEDS: MICAFUNGIN 100 MG in SODIUM CHLORIDE 0.9% 100 ML IV SCH (08:10)
[2018-05-26] MEDS: ASPIRIN 81 MG TABLET EC PO SCH (08:10)
[2018-05-26] MEDS: GABAPENTIN 400 MG CAPSULE PO SCH ×2 (08:10→19:58)
[2018-05-26] MEDS: FINASTERIDE 5 MG TABLET PO SCH (08:10)
[2018-05-26] MEDS: OMEPRAZOLE 20 MG CAPSULE.DR PO SCH ×2 (08:10→19:58)
[2018-05-26] MEDS: CYANOCOBALAMIN 1,000 MCG TABLET PO SCH (08:10)
[2018-05-26] MEDS: SERTRALINE 50MG TABLET PO SCH (08:10)
[2018-05-26] MEDS: SODIUM CHLORIDE FLUSH 10ML SYR IVF SCH ×2 (08:11→19:59)
[2018-05-26] MEDS: SENNA/DOCUSATE TABLET PO SCH (08:11)
[2018-05-26 08:19] VITALS: BP 131/74
[2018-05-26 13:08] VITALS: BP 109/64
[2018-05-26 17:14] LABS: CLOSTRIDIUM DIFFICILE ANTIGEN NEGATIVE; CLOSTRIDIUM DIFFICILE TOXIN NEGATIVE (Negative)
[2018-05-26] MEDS: LOPERAMIDE 2 MG CAPSULE PO PRN (17:35)
[2018-05-26] MEDS: LATANOPROST OPHTH 0.005%, 2.5ML EACHEYE SCH (19:57)
[2018-05-26] MEDS: TRAZODONE 50MG TABLET PO SCH (19:58)
[2018-05-26] MEDS: ATORVASTATIN 20 MG TABLET PO SCH (19:58)
[2018-05-26 19:59] VITALS: BP 102/65
[2018-05-27] MEDS: CEFTAZIDIME 2,000 MG in SODIUM CHLORIDE 0.9% 50 ML IV SCH ×3 (02:14→18:22)
[2018-05-27 03:16] VITALS: BP 110/69
[2018-05-27] MEDS: LOPERAMIDE 2 MG CAPSULE PO PRN (03:35)
[2018-05-27 06:58] VITALS: BP 107/71
[2018-05-27] MEDS: MICAFUNGIN 100 MG in SODIUM CHLORIDE 0.9% 100 ML IV SCH (08:43)
[2018-05-27] MEDS: OMEPRAZOLE 20 MG CAPSULE.DR PO SCH ×2 (08:43→20:04)
[2018-05-27] MEDS: FINASTERIDE 5 MG TABLET PO SCH (08:43)
[2018-05-27] MEDS: GABAPENTIN 400 MG CAPSULE PO SCH ×2 (08:43→20:04)
[2018-05-27] MEDS: SODIUM CHLORIDE FLUSH 10ML SYR IVF SCH ×2 (08:43→20:04)
[2018-05-27] MEDS: ASPIRIN 81 MG TABLET EC PO SCH (08:43)
[2018-05-27] MEDS: TAMSULOSIN 0.4 MG CAP.ER.24H PO SCH (08:43)
[2018-05-27] MEDS: SENNA/DOCUSATE TABLET PO SCH (08:44)
[2018-05-27] MEDS: SERTRALINE 50MG TABLET PO SCH (08:44)
[2018-05-27] MEDS: CYANOCOBALAMIN 1,000 MCG TABLET PO SCH (08:44)
[2018-05-27 12:23] VITALS: BP 106/62
[2018-05-27] MEDS ORDERED: MICA100V3 IV (18:22)
[2018-05-27] MEDS ORDERED: CEFT1VIA20 IV (18:22)
[2018-05-27 19:12] VITALS: BP 115/72
[2018-05-27] MEDS: LATANOPROST OPHTH 0.005%, 2.5ML EACHEYE SCH (20:03)
[2018-05-27] MEDS: ATORVASTATIN 20 MG TABLET PO SCH (20:04)
[2018-05-27] MEDS: TRAZODONE 50MG TABLET PO SCH (20:04)
[2018-05-28 00:58] VITALS: BP 97/66
[2018-05-28] MEDS: LOPERAMIDE 2 MG CAPSULE PO PRN (01:13)
[2018-05-28] MEDS: CEFTAZIDIME 2,000 MG in SODIUM CHLORIDE 0.9% 50 ML IV SCH (02:10)
[2018-05-28 07:24] VITALS: BP 112/72
[2018-05-28] MEDS: MICAFUNGIN 100 MG in SODIUM CHLORIDE 0.9% 100 ML IV SCH (07:44)
== END 2018-05-28 09:05 | disposition short-term general hospital (02) | DRG 871 ==
LOC: ED 14:57 → EDIP 17:58 → ED 18:32 → 4EST 23:40
PROVIDERS: ADMIT Hospitalist; ATTEND Hospitalist
DX: A41.9 Sepsis, unspecified organism (principal); E43 Unspecified severe protein-calorie malnutrition; N17.9 Acute kidney failure, unspecified; B37.49 Other urogenital candidiasis; F10.20 Alcohol dependence, uncomplicated; L89.152 Pressure ulcer of sacral region, stage 2; N13.9 Obstructive and reflux uropathy, unspecified; Z66 Do not resuscitate; B96.5 Pseudomonas (aeruginosa) (mallei) (pseudomallei) as the cause of diseases classified elsewhere; D64.9 Anemia, unspecified; E11.65 Type 2 diabetes mellitus with hyperglycemia; E78.00 Pure hypercholesterolemia, unspecified; E78.5 Hyperlipidemia, unspecified; I10 Essential (primary) hypertension; I69.344 Monoplegia of lower limb following cerebral infarction affecting left non-dominant side; Z79.82 Long term (current) use of aspirin; Z83.3 Family history of diabetes mellitus; Z79.899 Other long term (current) drug therapy; Z68.20 Body mass index [BMI] 20.0-20.9, adult; Z90.49 Acquired absence of other specified parts of digestive tract; Z89.511 Acquired absence of right leg below knee
CPT/HCPCS: 36415; 70450; 70553; 80048; 80053; 81001; 82040; 82436; 82550; 82570; 82962; 83036; 83735; 84100; 84133; 84300; 85025; 85610; 85730; 87040; 87077; 87086; 87106; 87186; 87324; 93005; 95812; A9585; G0378; J0696; J0713; J1644; J2248; J2543; J1815; J3475; J7030